=== PATIENT | male | born 1985 | race American Indian/Alaskan Native ===

== ENCOUNTER 2019-02-17 20:19 | Emergency (ER) | payer MEDICAID, OTHER ==
[2019-02-17 21:17] LABS: BASO # 0.1 K/uL (0.0-0.2); BASO % 0.9 % (0.0-2.0); EOS % 0.6 % (0.0-4.0); HEMOGLOBIN 16.1 g/dL (12.0-18.0); LYMPH # 1.2 K/uL (1.0-4.3); LYMPH % 17.5 % (20.0-40.0); MEAN CORPUSCULAR HEMOGLOBIN 33.3 pg (27.0-31.0); MEAN CORPUSCULAR HGB CONC 33.3 g/dL (33.0-37.0); MONO # 0.5 K/uL (0.0-0.8); MONO % 7.9 % (0.0-10.0); NEUT # 4.9 K/uL (1.8-7.0); NEUT % 73.1 % (50.0-75.0); NRBC % 0.1 % (0.0-2.0); RBC 4.83 Mil/uL (4.40-5.90); RED CELL DISTRIBUTION WIDTH 12.9 % (11.5-14.5); WHITE BLOOD COUNT 6.7 K/uL (4.8-10.8)
[2019-02-17 21:29] LABS: ALB/GLOB RATIO 1.2 (1.0-2.1); ALBUMIN 4.4 g/dL (3.5-5.0); ALT/SGPT 21 U/L (21-72); AST/SGOT 27 U/L (17-59); BLOOD UREA NITROGEN 18 mg/dL (9-20); CALCIUM 9.6 mg/dl (8.6-10.4); GFR NON-AFRICAN AMERICAN > 60; LIPASE 72 U/L (23-300)
[2019-02-17 21:46] LABS: URINE BILIRUBIN NEGATIVE (NEGATIVE); URINE BLOOD NEGATIVE (NEGATIVE); URINE CLARITY Clear (Clear); URINE COLOR Yellow (YELLOW); URINE GLUCOSE (UA) NORMAL (Normal); URINE LEUKOCYTE ESTERASE NEG Leu/uL (Negative); URINE PROTEIN NEGATIVE (NEGATIVE); URINE UROBILINOGEN NORMAL mg/dL (0.2-1.0)
--- NOTE | 2019-02-17 21:56 | C.PDOC ---
History Of Present Illness 33 year old male presents to the ED c/o lower abdominal pain associated with nausea that started earlier today. Patient reports his pain is constant but periodically worsens. Patient denies fever, chills, vomiting, diarrhea, rash, dy suria, hematuria. Time Seen by Provider: 02/17/19 20:34 Chief Complaint (Nursing): Abdominal Pain History Per: Patient History/Exam Limitations: no limitations Onset/Duration Of Symptoms: Hrs, Persistent Current Symptoms Are (Timing): Still Present Severity: Mild Location Of Pain/Discomfort: Other (lower abdomen ) Quality Of Discomfort: "Pain" Associated Symptoms: Nausea. denies: Vomiting, Diarrhea, Urinary Symptoms Recent travel outside of the [place]: No Additional History Per: Patient Past Medical History Reviewed: Historical Data, Nursing Documentation, Vital Signs Vital Signs: Last Vital Signs Temp 98.4 F 02/17/19 20:26 Pulse 64 02/17/19 20:26 Resp 17 02/17/19 20:26 BP 127/78 02/17/19 20:26 Pulse Ox 98 02/17/19 20:26 Primary Care Provider: Isacc Singh - Medical History PMH: No Chronic Diseases Surgical History: No Surg Hx Family History: States: No Known Family Hx - Social History Hx Tobacco Use: No Hx Alcohol Use: Yes Hx Substance Use: No - Immunization History Hx Tetanus Toxoid Vaccination: No Hx Influenza Vaccination: No Hx Pneumococcal Vaccination: No Review Of Systems Constitutional: Negative for: Fever, Chills Cardiovascular: Negative for: Chest Pain Respiratory: Negative for: Shortness of Breath Gastrointestinal: Positive for: Nausea, Abdominal Pain. Negative for: Vomiting, Diarrhea Genitourinary: Negative for: Dysuria, Hematuria Musculoskeletal: Negative for: Back Pain Skin: Negative for: Rash Neurological: Negative for: Weakness, Numbness, Headache Physical Exam - Physical Exam Appears: Well, Non-toxic, No Acute Distress Skin: Normal Color, Warm, Dry Eye(s): bilateral: Normal Inspection Oral Mucosa: Moist Neck: Normal ROM, Supple Chest: Symmetrical Cardiovascular: Rhythm Regular Respiratory: Normal Breath Sounds, No Rales, No Rhonchi, No Wheezing Gastrointestinal/Abdominal: Bowel Sounds, Soft, Tenderness (suprapubic and LLQ TTP, mild RLQ TTP), No Guarding, No Rebound, Other ((-) [place]'s) Back: No CVA Tenderness Extremity: Normal ROM, No Tenderness, No Swelling Neurological/Psych: Oriented x3 Gait: Steady ED Course And Treatment - Laboratory Results Result Diagrams: 02/17/19 12:05 02/17/19 12:05 Lab Results: Total Bilirubin 0.5 mg/dL (0.2-1.3) 02/17/19 12:05 AST 27 U/L (17-59) 02/17/19 12:05 ALT 21 U/L (21-72) 02/17/19 12:05 Alkaline Phosphatase 49 U/L (38-126) 02/17/19 12:05 Total Protein 8.0 g/dL (6.3-8.3) 02/17/19 12:05 Albumin 4.4 g/dL (3.5-5.0) 02/17/19 12:05 Globulin 3.6 gm/dL (2.2-3.9) 02/17/19 12:05 Albumin/Globulin Ratio 1.2 (1.0-2.1) 02/17/19 12:05 Lipase 72 U/L (23-300) 02/17/19 12:05 O2 Sat by Pulse Oximetry: 98 (ON RA) Pulse Ox Interpretation: Normal Progress Note: Blood work, UA ordered and reviewed. Patient given IV NS bolus, IV tporadol. On reassessment, patient still c/o abdominal pain - CT scan ordered. Disposition - Disposition Disposition Time: 01:00 Condition: STABLE Forms: [facility] (French) - Clinical Impression Clinical Impression: Lower abdominal pain - Scribe Statement The provider has reviewed the documentation as recorded by the Scribe Ramu Roque All medical record entries made by the Scribe were at my direction and personally dictated by me. I have reviewed the chart and agree that the record accurately reflects my personal performance of the history, physical exam, medical decision making, and the department course for this patient. I have also personally directed, reviewed, and agree with the discharge instructions and disposition. Physician Patient Turnover Patient Signed Over To: Bushra Wong Handoff Comments: pending ct scan abd/pelvis
[2019-02-18] MEDS ORDERED: Morphine 4 MG/ML VIAL ONE (00:21)
[2019-02-18] MEDS ORDERED: Iodixanol 320 MG/ML 100 ML BOTTLE IV ONE (00:47)
[2019-02-18 03:38] VITALS: BP 124/81; PULSE 73; RESP 16; TEMP 97.6; O2SAT 99
--- NOTE | 2019-02-18 12:48 | CT ---
Date of service: 02/18/2019 PROCEDURE: CT abdomen and pelvis HISTORY: LOWER ABD PAIN, R/O APPY VS DIVERTICULITIS COMPARISON: Comparison made with prior CT scan 04/24/2014. TECHNIQUE: Contiguous axial images of the abdomen and pelvis following intravenous injection of approximately 100 cc Visipaque 320 contrast material. Additional 2D sagittal and coronal reformats generated. Radiation dose: Total exam DLP = 590.79 mGy-cm. This CT exam was performed using one or more of the following dose reduction techniques: Automated exposure control, adjustment of the mA and/or kV according to patient size, and/or use of iterative reconstruction technique. FINDINGS: LOWER THORAX: Heart size upper limits of normal. No significant pericardial effusion. Tiny hiatal hernia. Lung bases clear. LIVER: Unremarkable. No gross lesion or ductal dilatation. GALLBLADDER AND BILE DUCTS: Unremarkable. PANCREAS: Unremarkable. No mass. No ductal dilatation. SPLEEN: Unremarkable. No splenomegaly. ADRENALS: Unremarkable. KIDNEYS AND URETERS: Unremarkable. No stone or hydronephrosis. BLADDER: Grossly unremarkable. REPRODUCTIVE: Unremarkable. APPENDIX: The appendix is not identified with complete certainty however what appears represent normal appendix is seen on axial image number 107 through 117. No periappendiceal inflammatory changes. BOWEL: There is a moderate amount of stool within the cecum, ascending transverse and proximal descending and to a lesser degree sigmoid colon consistent with fecal retention/constipation. There is fecalized content within the distal small bowel with what may represent secondary ileus. PERITONEUM: Small amount of free fluid is present within the pelvis abnormal in a male patient.. No free intraperitoneal air. Small fat containing umbilical hernia. LYMPH NODES: Unremarkable. No enlarged lymph nodes. VASCULATURE: Unremarkable. No aortic aneurysm. No aortic atherosclerotic calcification or mural plaque present. BONES: No fracture or destructive lesion. OTHER FINDINGS: None. IMPRESSION: There is a small amount of free fluid seen in the pelvis nonspecific although abnormal in a male patient. Clinical correlation recommended... The appendix is not seen with complete certainty however what may represent the appendix is best visualized on axial 107-117. No obvious inflammatory changes right lower quadrant of the abdomen Findings consistent with constipation with questionable. There is fecalized content within the distal small bowel with what may represent secondary ileus as well.
== END 2019-02-18 03:39 | disposition home or self-care (01) ==
LOC: C.ER 20:19
DX: R10.30 Lower abdominal pain, unspecified (principal)
CPT/HCPCS: 74177; 80053; 81001; 83690; 85025; 96374; 96375; 99284; J1885; J2270; Q9967